=== PATIENT | female | born 1990 | race African-American/Black ===

== ENCOUNTER 2017-09-17 13:20 | Emergency (ER) | payer MEDICAID ==
[~2017-09-17] VITALS: Ht 170.2 cm; Wt 105.2 kg
[2017-09-17 14:22] VITALS: BP 125/82
[2017-09-17] MEDS ORDERED: METHOCARBAMOL 500 MG TAB PO ONE (15:00)
== END 2017-09-17 15:38 | disposition home or self-care (01) ==
LOC: ER 13:24
DX: M25.511 Pain in right shoulder (principal); M25.531 Pain in right wrist; M79.644 Pain in right finger(s); V89.2XXA Person injured in unspecified motor-vehicle accident, traffic, initial encounter; Y93.89 Activity, other specified; Y99.8 Other external cause status; Y92.89 Other specified places as the place of occurrence of the external cause
CPT/HCPCS: 73030; 73110; 73130

== ENCOUNTER 2018-05-28 11:17 | Emergency (ER) | payer MEDICAID ==
[~2018-05-28] VITALS: Ht 170.2 cm; Wt 93.0 kg
[2018-05-28 12:04] VITALS: BP 134/79
[2018-05-28] MEDS ORDERED: KETOROLAC TROMETH 60MG/2ML VIAL IM ONE (12:30)
== END 2018-05-28 13:18 | disposition home or self-care (01) ==
LOC: ER 11:21
DX: M17.0 Bilateral primary osteoarthritis of knee (principal); Z88.5 Allergy status to narcotic agent; Z88.8 Allergy status to other drugs, medicaments and biological substances
CPT/HCPCS: 96372; 99283; J1885